=== PATIENT | female | born 1985 | race Caucasian/White ===

== ENCOUNTER 2017-08-29 08:21 | Emergency (ER) | payer MEDICAID ==
[2017-08-29] MEDS ORDERED: HYDROmorphone 4 MG/ML Syringe ONE (09:01)
[2017-08-29] MEDS ORDERED: Ondansetron 4 MG/2 ML SDV ONE (09:02)
--- NOTE | 2017-08-29 09:27 | EDM.PDOC ---
ED HPI GENERAL MEDICAL PROBLEM - General Chief Complaint: General Stated Complaint: ABDOMINAL PAIN Time Seen by Provider: 08/29/17 08:30 Source of Information: Reports: Patient History Limitations: Reports: No Limitations - History of Present Illness INITIAL COMMENTS - FREE TEXT/NARRATIVE: According to patient she started having pain in here right upper quadrant and epigastric region around midnight. Last night she had some Indonesian food and pistachios of supper and went to bed. woke up at midnight with sudden onset of severe RUQ pain, the pain lasted for few minutes and resolved, it started to reoccur all night rates her pain was around 7-8/10 when it got sharp. Did feels nausea at times, but no vomiting. Pt was told during her last that she had gall stones. No fever or chills. No jaundice or loss of appetite. Onset: Today Onset Date: 08/29/17 Onset Time: 00:30 Duration: Intermittent, Waxing/Waning Location: Reports: Abdomen Quality: Reports: Ache Severity: Moderate Improves with: Reports: None Worsens with: Reports: None Associated Symptoms: Reports: Nausea/Vomiting. Denies: Confusion, Chest Pain, Cough, Diaphoresis, Fever/Chills, Headaches, Rash, Seizure, Shortness of Breath , Syncope, Weakness Epigastric Pain Score (Numeric/FACES): 10 - Related Data Allergies Allergy/AdvReac Type Severity Reaction Status Date / Time No Known Allergies Allergy Verified 08/29/17 08:51 Home Meds: Home Meds NK [No Known Home Meds] 08/29/17 [History] ED ROS GENERAL - Review of Systems Review Of Systems: See Below Constitutional: Denies: Fever, Chills, Malaise, Weakness, Fatigue, Night Sweats HEENT: Denies: Contact Lenses, Throat Pain, Throat Swelling Respiratory: Denies: Shortness of Breath, Wheezing, Pleuritic Chest Pain, Cough , Sputum Cardiovascular: Denies: Chest Pain, Lightheadedness GI/Abdominal: Reports: Abdominal Pain, Nausea. Denies: Anorexia, Diarrhea, Vomiting : Denies: Flank Pain, Frequency Musculoskeletal: Denies: Joint Pain, Joint Swelling Skin: Denies: Bruising, Pruritis, Rash, Erythema ED EXAM, GENERAL - Physical Exam Exam: See Below Exam Limited By: No Limitations General Appearance: Alert, WD/WN, No Apparent Distress Eye Exam: Bilateral Eye: EOMI, PERRL Ears: Normal External Exam, Normal Canal, Hearing Grossly Normal, Normal TMs Ear Exam: Bilateral Ear: Auricle Normal, Canal Normal, TM normal Nose: Normal Inspection, Normal Mucosa, No Blood Throat/Mouth: Normal Inspection, Normal Lips, Normal Teeth, Normal Gums, Normal Oropharynx, Normal Voice, No Airway Compromise Head: Atraumatic, Normocephalic Neck: Normal Inspection, Supple, Non-Tender, Full Range of Motion Respiratory/Chest: No Respiratory Distress, Lungs Clear, Normal Breath Sounds, No Accessory Muscle Use, Chest Non-Tender Cardiovascular: Normal Peripheral Pulses, Regular Rate, Rhythm, No Edema, No Gallop, No JVD, No Murmur, No Rub GI/Abdominal: Normal Bowel Sounds, Soft, No Organomegaly, Tender (right upper quadrant just distal to the liver margin in right MCL. No mass felt). No: Rigid , Rebound Course - Vital Signs Text/Narrative:: Pt was in pain with mild discomfort. She did received dilaudid 0.5mg IM with zofran 4mg. It does appear very much like gall bladder colic. CBC, CMP and Ct abdomen ordered as there is no ultrasound available today. Pt cbc and CMp appear normal other than mild elevation of her blood sugar and patient is not fasting. Abdomen CT does show stones in the gall bladder with calcification. Reassured taht she does not have infection.Pt advised to stay of low fat diet. She will need surgical consultation for lap jesse.Pt prefers to see Surgeon here, so will set up with one of the visiting surgeon here. Also I have given her script for vicodin 5/325 po TID prn for pain. Return to emergency room, if symptoms worsen, if she develops nausea, vomiting, jaundice, fever or chills. Last Recorded V/S: Last Vital Signs Temp 97.2 F 08/29/17 08:27 Pulse 90 08/29/17 08:27 Resp 20 08/29/17 08:27 BP 153/111 H 08/29/17 08:27 Pulse Ox 100 08/29/17 08:27 - Orders/Labs/Meds Orders: Active Orders 24 hr Category Date Time Status Abdomen wo Cont [CT] Stat Exams 08/29/17 08:33 Taken Labs: Laboratory Tests 02/20/18 02/20/18 Range/Units 08:42 08:42 WBC 9.8 (4.0-11.0) K/uL RBC 4.09 (3.80-5.80) M/uL Hgb 13.0 (11.5-16.5) g/dL Hct 40.0 (37.0-47.0) % MCV 98 H (76-96) fL MCH 31.8 (27.0-32.0) pg MCHC 32.5 (31.0-35.0) g/dL RDW 12.8 (11.0-16.0) % Plt Count 240 (150-500) K/uL MPV 9.9 (6.0-10.0) fL Neut % (Auto) 66.0 (45.0-70.0) % Lymph % (Auto) 24.5 (20.0-40.0) % [place] % (Auto) 8.1 (3.0-10.0) % Eos % (Auto) 1.1 (1.0-5.0) % Baso % (Auto) 0.3 (0.0-0.5) % Neut # (Auto) 6.46 (2.00-7.50) K/uL Lymph # (Auto) 2.40 (1.50-4.00) K/uL [place] # (Auto) 0.79 (0.20-0.80) K/uL Eos # (Auto) 0.11 (0.04-0.40) K/uL Baso # (Auto) 0.03 (0.02-0.10) K/uL Sodium 142 (136-145) mmol/L Potassium 4.3 (3.5-5.1) mmol/L Chloride 104 (98-107) mmol/L Carbon Dioxide 25.9 (21.0-32.0) mmol/L Anion Gap 16.4 H (5.0-15.0) mmol/L BUN 9 (8-26) mg/dL Creatinine 0.83 (0.55-1.02) mg/dL Est Cr Clr Drug Dosing TNP Estimated GFR (MDRD) > 60 (>60) MLS/MIN BUN/Creatinine Ratio 10.8 (6-25) Glucose 174 H (74-100) mg/dL Calcium 8.5 (8.5-10.1) mg/dL Total Bilirubin 0.3 (0.0-1.0) mg/dL AST 13 L (15-37) U/L ALT 17 (12-78) U/L Alkaline Phosphatase 96 (46-116) U/L Total Protein 7.2 (6.4-8.2) g/dL Albumin 3.6 (3.4-5.0) g/dL Globulin 3.6 (2.2-4.2) g/dL Albumin/Globulin Ratio 1.0 (0.8-2.0) Meds: Medications Discontinued Medications Generic Name Dose Route Start Last Admin Trade Name Freq PRN Reason Stop Dose Admin Hydromorphone HCl Confirm 08/29/17 09:01 08/29/17 09:00 Dilaudid Administered 08/29/17 09:02 4 mg Dose Administration 4 mg .ROUTE .STK-MED ONE Ondansetron HCl Confirm 08/29/17 09:02 08/29/17 09:05 Zofran Administered 08/29/17 09:03 4 mg Dose Administration 4 mg .ROUTE .STK-MED ONE Departure - Departure Time of Disposition: 09:30 Disposition: Home, Self-Care 01 Condition: Fair Clinical Impression: Gall bladder stones - Discharge Information Referrals: PCP,None [Primary Care Provider] - - Problem List & Annotations (1) Gall bladder stones SNOMED Code(s): 510310289 Code(s): K80.20 - CALCULUS OF GALLBLADDER W/O CHOLECYSTITIS W/O OBSTRUCTION Status: Acute Current Visit: Yes - Problem List Review Problem List Initiated/Reviewed/Updated: Yes - My Orders Last 24 Hours: My Active Orders 08/29/17 08:33 Abdomen wo Cont [CT] Stat - Assessment/Plan Last 24 Hours: My Active Orders 08/29/17 08:33 Abdomen wo Cont [CT] Stat Assessment:: Gall stone with colic Plan: Pt was in pain with mild discomfort. She did received dilaudid 0.5mg IM with zofran 4mg. It does appear very much like gall bladder colic. CBC, CMP and Ct abdomen ordered as there is no ultrasound available today. Pt cbc and CMp appear normal other than mild elevation of her blood sugar and patient is not fasting. Abdomen CT does show stones in the gall bladder with calcification. Reassured that she does not have infection.Pt advised to stay of low fat diet. She will need surgical consultation for lap jesse.Pt prefers to see Surgeon here, so will set up with one of the visiting surgeon here. Also I have given her script for vicodin 5/325 po TID prn for pain.Pt's BP did improve with improvement of pain. BP was 128/68mmhg during discharge and patient was pain free. Return to emergency room, if symptoms worsen, if she develops nausea, vomiting, jaundice, fever or chills.
--- NOTE | 2017-08-29 12:34 | CT ---
DATE OF SERVICE: 08/29/17 CLINICAL DATA: abdominal pain UNENHANCED ABDOMEN CT: Multislice acquisition through the abdomen without IV or oral contrast was performed. No priors. The lung bases are clear. The unenhanced liver is homogeneous in attenuation. No focal hepatic lesions. The gallbladder is mildly distended. There are multiple rim-calcified gallstones noted within the gallbladder. The gallbladder wall does appear slightly thickened. The spleen appears normal. The pancreas appears normal. The right and left adrenals appear normal. The right and left kidneys appear normal. No nephrocalcinosis or nephrolithiasis. No hydronephrosis or hydroureter. The appendix is only visualized on one image. It is not dilated. There is a moderate amount of stool noted within the visualized colon. There is an umbilical hernia containing fat. No free air. No free fluid. No dilated loops of bowel. No adenopathy. No aortic aneurysm. IMPRESSION: Cholelithiasis. Mildly distended gallbladder. Slightly thickened gallbladder wall. Gallbladder ultrasound is recommended. [id number] MTDD
== END 2017-08-29 09:25 | disposition home or self-care (01) ==
LOC: LB.ED 08:21
DX: K80.20 Calculus of gallbladder without cholecystitis without obstruction (principal)
CPT/HCPCS: 36415; 74150; 80053; 85025; 99284; J1170; J2405

== ENCOUNTER 2019-06-07 19:28 | Emergency (ER) | payer MEDICAID ==
[2019-06-07] MEDS ORDERED: Naproxen 500 MG Tab ONE (19:45)
[2019-06-07] MEDS ORDERED: Ketorolac 60 MG/2 ML SDV IM ONE (19:47)
--- NOTE | 2019-06-07 19:49 | EDM.PDOC ---
ED HPI GENERAL MEDICAL PROBLEM - General Chief Complaint: General Stated Complaint: left knee pain Time Seen by Provider: 06/07/19 19:45 Source of Information: Reports: Patient History Limitations: Reports: No Limitations - History of Present Illness INITIAL COMMENTS - FREE TEXT/NARRATIVE: This patient presents to the ED for evaluation of a knee injury. She states she fell at about 0800 this morning and twisted her knee in the process. She states she heard a pop when the incident occurred and landed on the inner aspect of the joint. She was seen in the clinic this afternoon for evaluation of this and a plain film series was obtained. The provider there told her the x-rays were probably ok and the patient was discharged with instructions for supportive care. She presents now for increased pain and swelling. She denies other injuries or concerns. Onset: Today, Sudden Onset Date: 06/07/19 Duration: Getting Worse Quality: Reports: Ache, Burning, Stabbing Severity: Severe Improves with: Reports: None Worsens with: Reports: Movement Treatments BLUEPRINT DUPLICATOR: Reports: Acetaminophen, NSAIDS - Related Data Allergies Allergy/AdvReac Type Severity Reaction Status Date / Time No Known Allergies Allergy Verified 08/29/17 08:51 Home Meds: Home Meds NK [No Known Home Meds] 08/29/17 [History] ED ROS GENERAL - Review of Systems Review Of Systems: See Below Constitutional: Reports: No Symptoms HEENT: Reports: No Symptoms Respiratory: Reports: No Symptoms Cardiovascular: Reports: No Symptoms GI/Abdominal: Reports: No Symptoms Musculoskeletal: Reports: Joint Pain, Other (left knee painful, swollen with small bruised area inner aspect. Distal CMS intact) ED EXAM, GENERAL - Physical Exam Exam: See Below Exam Limited By: No Limitations General Appearance: Alert, WD/WN, No Apparent Distress Eye Exam: Bilateral Eye: PERRL Ears: Normal External Exam Nose: Normal Inspection Throat/Mouth: Normal Inspection Head: Atraumatic, Normocephalic Neck: Normal Inspection, Full Range of Motion Respiratory/Chest: No Respiratory Distress Back Exam: Normal Inspection, Full Range of Motion Extremities: Other (Left knee: significant swelling with bruising along inner aspect. No deformity. Distal CMS intact. Signficant tenderness with palpation of the inner aspect of the joint and behind the knee.) Neurological: Alert, Oriented Course - Vital Signs Last Recorded V/S: Last Vital Signs Temp 36.7 C 06/07/19 19:36 Pulse 82 06/07/19 19:36 Resp 18 06/07/19 19:36 BP 156/76 H 06/07/19 19:36 Pulse Ox 98 06/07/19 19:36 - Orders/Labs/Meds Meds: Medications Discontinued Medications Generic Name Dose Route Start Last Admin Trade Name Lissett PRN Reason Stop Dose Admin Ketorolac Tromethamine 60 mg 06/07/19 19:47 06/07/19 19:54 Toradol IM 06/07/19 19:48 60 mg ONETIME ONE Administration - Re-Assessments/Exams Free Text/Narrative Re-Assessment/Exam: 06/07/19 20:14 This patient presents with the above complaint and exam findings as noted above. X-rays are negative by my interpretation for fracture or malalignment. The patient is neurovascularly intact. Quad and patellar tendon function intact. The knee is grossly stable to stressing without obvious laxity, though this is somewhat a limited test given the patient pain and voluntary guarding. Given the exam (significant traumatic effusion), mechanism and high clinical suspicion, I suspect internal derangement of the knee including possible ligamentous and/or meniscal injury. For this reason, the patient will be treated as such with non-weight bearing and knee immobilization. Skin intact at the location of injury. No tenderness at the hip or foot to suggest concurrent injury. At this time, exam and history is clearly traumatic/musculoskeletal in nature and consistent with probable internal knee derangement and no clinical suspicion for alternate cause of knee pain including but not limited to septic joint, DVT, compartment syndrome or other. The patient will be treated with knee immobilization with TONJA wraps and I have recommended orthopedic follow up within 1 week for outpatient MRI or orthopedic referral. Ice in 20 min intervals and elevation recommended. Return for increasing pain, extremity weakness, numbness, or for any other questions or concerns discussed. The patient voiced an understanding and is in agreement with the treatment plan and need for follow up for likely additional imaging or referral. The patient was given Toradol in the ED which significantly decreased her pain prior to discharge. She was also given Naprosyn 500 mg to be used twice per day. Departure - Departure Time of Disposition: 20:15 Disposition: Home, Self-Care 01 Condition: Good Clinical Impression: Knee injury - Discharge Information Instructions: Combined Knee Ligament Sprain Forms: ED Department Discharge Additional Instructions: Discharge home. Wear TONJA wrap to left knee. ICE and elevated the leg. Naproxen 500mg by mouth 1 tablet 2 times a day. Take one in the morning. Follow up as needed in the clinic.
== END 2019-06-07 20:15 | disposition home or self-care (01) ==
LOC: LB.ED 19:28
DX: S89.92XA Unspecified injury of left lower leg, initial encounter (principal); W19.XXXA Unspecified fall, initial encounter; X50.1XXA Overexertion from prolonged static or awkward postures, initial encounter
CPT/HCPCS: 96372; 99283; A9270-GY; J1885

== ENCOUNTER 2019-10-10 09:46 | Emergency (ER) | payer MEDICAID, OTHER ==
--- NOTE | 2019-10-10 11:57 | EDM.PDOC ---
ED HPI GENERAL MEDICAL PROBLEM - General Chief Complaint: General Stated Complaint: COLD, COUGH, FEVER Time Seen by Provider: 10/10/19 10:00 - History of Present Illness INITIAL COMMENTS - FREE TEXT/NARRATIVE: Sameera presents to the emergency room with acute febrile illness. 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 She has had no ill exposures, but notes that there are still several people coming up here to their cabin's from [facility], and they oftentimes come in for medication refills and what not at [employer]. She is also concerned because a colleague that works behind the counter next to her is . She started to feel sick yesterday around 1700. A few hours later, she went from a subjective fever to a definite fever. At this time a nonproductive cough started and this pretty much kept her up all night. She notes absence of smell and taste. She has had a little bit of hoarseness in her throat but no sore throat. She has definitely has an issue in terms of feeling like she cannot get enough air, particularly like she is restricted in terms of inhalation. She has no trouble with the expiration phase at all or wheezes. She does have a family history of COPD, and she does currently smoke. She denies any genitourinary symptoms as well as . She is mostly interested in empiric treatment to help her to feel better. She does endorse some transient nausea and a bit of upset stomach, without any diarrhea. She has been staying well-hydrated. She has not had issues with bronchoconstriction throughout her life, nor has she been trialed on any bronchodilators. She sounds pretty interested in this. She also mentions prednisone. Overall she is willing to try what ever we think will help her to feel better. 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 ED EXAM, GENERAL - Physical Exam Exam: See Below Exam Limited By: No Limitations General Appearance: Alert, WD/WN, No Apparent Distress Eye Exam: Bilateral Eye: EOMI, Normal Inspection, PERRL Ears: Normal External Exam, Hearing Grossly Normal Nose: Clear Rhinorrhea Throat/Mouth: Normal Inspection, Normal Lips Head: Atraumatic, Normocephalic Neck: Normal Inspection, Supple, Non-Tender, Full Range of Motion Respiratory/Chest: No Respiratory Distress, Lungs Clear, Normal Breath Sounds, No Accessory Muscle Use. No: Respiratory Distress, Rales, Rhonchi, Wheezing, Stridor Cardiovascular: Regular Rate, Rhythm, No Murmur GI/Abdominal: Normal Bowel Sounds, Soft, Non-Tender Back Exam: Normal Inspection, Full Range of Motion Extremities: Normal Inspection, Normal Range of Motion, Non-Tender, Normal Capillary Refill Neurological: Alert, Oriented, Normal Cognition, Normal Gait Psychiatric: Normal Affect, Normal Mood Skin Exam: Warm, Dry, Intact, No Rash Lymphatic: No Adenopathy Course - Vital Signs Text/Narrative:: Again, reviewed risks and benefits of management strategies with Sameera, answering her questions to the best of my ability. We decided together to avoid chest x-ray, and it seems that blood work would have similarly low yield. I did maintain more than adequate social distance and wore a mask initially. Because of her symptoms being at higher than average risk of actually being coronavirus, I did exit the room and totally change my clothing and came in with a PAPR along with the full accompaniment of protective gear. I obtained an influenza swab which was negative. Her Covid swab was also brought to the lab. The vial was open has I was having some difficulty stepping this stick over the test, but the swab maintained under the fluid level at all times and was not agitated at all. We ultimately decided together, after speaking with the pharmacist, that she may benefit from a azithromycin, even if this is more of an anti-inflammatory effect. We explained that prednisone has some theoretical risks and we decided to hold off on this, but she wanted to try an albuterol MDI. Also gave her prescription for Tessalon Perles to help mitigate her cough. We gave her a couple of paper masks to wear at home, particularly if she gets close to her 2 sons and daughter or her spouse. She will try to maintain social distancing, and promises to use Lysol to clean frequently touched surfaces. She will remain isolated at home and a work note was provided to get her through not this Monday, but the following Monday, and case it takes over 9 days for [facility] to return her test result. Having said this, she can certainly go back to work if her cold bed becomes normal, and she has the absence of any symptoms. We discussed that she should probably continue with a paper mask when she is around her colleague, as this is a major concern for Sameera. Discussed reasons to return and/or call and she verbalizes understanding. Last Recorded V/S: Last Vital Signs Temp 96.9 F 10/10/19 09:59 Pulse 85 10/10/19 09:59 Resp 16 10/10/19 09:59 BP 160/94 H 10/10/19 09:59 Pulse Ox 100 10/10/19 09:59 - Orders/Labs/Meds Orders: Active Orders 24 hr Category Date Time Status CORONAVIRUS COVID-19, GORGE Stat Lab 10/10/19 10:53 Received Isolation [COMM] Routine Oth 10/10/19 11:00 Active Departure - Departure Time of Disposition: 10:50 Disposition: Home, Self-Care 01 Clinical Impression: Cough - Discharge Information Instructions: Upper Respiratory Infection, Adult, Acute Respiratory Distress Syndrome, Adult Referrals: PCP,None [Primary Care Provider] - Forms: ED Department Discharge Care Plan Goals: Return to hospital in the next few days if symptoms worsen. Take medications as prescribed. Sepsis Event Note - Evaluation Sepsis Screening Result: No Definite Risk - Focused Exam Vital Signs: Vital Signs Temp Pulse Resp BP Pulse Ox 10/10/19 09:59 96.9 F 85 16 160/94 H 100 Date Exam was Performed: 10/10/19 Time Exam was Performed: 11:51 - My Orders Last 24 Hours: My Active Orders 10/10/19 10:53 CORONAVIRUS COVID-19, GORGE Stat 10/10/19 11:00 Isolation [COMM] Routine - Assessment/Plan Last 24 Hours: My Active Orders 10/10/19 10:53 CORONAVIRUS COVID-19, GORGE Stat 10/10/19 11:00 Isolation [COMM] Routine
== END 2019-10-10 11:08 | disposition home or self-care (01) ==
LOC: LB.ED 09:46
DX: R05 Cough (principal); F17.210 Nicotine dependence, cigarettes, uncomplicated; Z20.828 Contact with and (suspected) exposure to other viral communicable diseases
CPT/HCPCS: 87804; 87804-59; 99282; 99283; U0002

== ENCOUNTER 2020-01-21 16:30 | Emergency (ER) | payer MEDICAID, OTHER ==
[2020-01-21] MEDS ORDERED: Sodium Chloride 0.9% 1,000 ML IV ONE (17:15)
[2020-01-21 17:42] LABS: HEMOGLOBIN A1C 9.9 % (< 5.7)
--- NOTE | 2020-01-21 17:48 | EDM.PDOC ---
ED HPI GENERAL MEDICAL PROBLEM - General Chief Complaint: Diabetic Complaint Stated Complaint: HIGH BLOOD SUGAR CO Time Seen by Provider: 01/21/20 17:00 Source of Information: Reports: Patient History Limitations: Reports: No Limitations - History of Present Illness INITIAL COMMENTS - FREE TEXT/NARRATIVE: Patient is a 34 y/o female, with no significant PMHx, who presents with 30 pound weight loss, excessive hunger/thirst/urination x 1 month. Associated symptoms include vision blurriness and dizziness. Patient states she had gestational diabetes in the past and denies now (tubal ligation). Her blood glucose at arrival was 348. Patient denies any LYMAN, chest pain, SOB, abdominal pain, N/V/D, constipation, numbness/tingling, dysuria, or cough. - Related Data Allergies Allergy/AdvReac Type Severity Reaction Status Date / Time No Known Allergies Allergy Verified 01/21/20 16:36 Home Meds: Home Meds Sertraline HCl 50 mg PO DAILY 06/07/19 [History] Past Medical History Gastrointestinal History: Reports: Other (See Below) Other Gastrointestinal History: gall stones [employer] History: Reports: Psychiatric History: Reports: Depression, Mood Swings Endocrine/Metabolic History: Reports: Diabetes, Gestational Social & Family History - Family History Family Medical History: Noncontributory - Tobacco Use Smoking Status *Q: Current Every Day Smoker Years of Tobacco use: 17 Packs/Tins Daily: 0.5 - Caffeine Use Caffeine Use: Reports: Coffee, Soda - Recreational Drug Use Recreational Drug Use: No ED ROS GENERAL - Review of Systems Review Of Systems: Comprehensive ROS is negative, except as noted in HPI. ED EXAM GENERAL NO PERIP PULSE - Physical Exam Exam: See Below Exam Limited By: No Limitations General Appearance: Alert, No Apparent Distress Eye Exam: Bilateral Eye: EOMI, Normal Inspection, PERRL Head: Atraumatic Neck: Normal Inspection, Supple, Non-Tender, Full Range of Motion Respiratory/Chest: No Respiratory Distress, Lungs Clear, Normal Breath Sounds, No Accessory Muscle Use, Chest Non-Tender Cardiovascular: Normal Peripheral Pulses, Regular Rate, Rhythm, No Edema, No Murmur GI/Abdominal: Normal Bowel Sounds, Soft, Non-Tender, No Distention Neurological: Alert, Oriented, CN II-XII Intact, Normal Cognition, Normal Gait, No Motor/Sensory Deficits Skin Exam: Warm, Dry, Intact Lymphatic: No Adenopathy Course - Vital Signs Text/Narrative:: Labs, fluid, IV insulin, and imaging ordered. Glucose in the urine. CXR normal. Hyperglycemia without electrolyte deformity. Signed patient out to [facility] at change of shift. Last Recorded V/S: Last Vital Signs Temp 36.4 C 01/21/20 18:03 Pulse 82 01/21/20 18:03 Resp 16 01/21/20 18:03 BP 127/75 01/21/20 18:03 Pulse Ox 100 01/21/20 18:03 - Orders/Labs/Meds Orders: Active Orders 24 hr Category Date Time Status Vision Test [RC] ASDIRECTED Care 01/21/20 17:17 Active Chest 1V Frontal [CR] Stat Exams 01/21/20 17:14 Taken Insulin Regular, Human [NovoLIN R] 100 unit Med 01/21/20 17:15 Active Sodium Chloride 0.9% [Normal Saline] 100 ml IV TITRATE Medication Orders Insulin Human Regular 100 unit (/ Sodium Chloride) 100 mls @ 11.204 mls/hr IV TITRATE LI; Protocol Last Admin: 01/21/20 17:51 Dose: 0.1 units/kg/hr, 11.204 mls/hr Documented by: KELI Cosigned by: MYKE Labs: Laboratory Tests 01/21/20 01/21/20 01/21/20 Range/Units 15:34 17:14 17:30 WBC 11.6 H (4.0-11.0) K/uL RBC 4.33 (3.80-5.80) M/uL Hgb 13.7 (11.5-16.5) g/dL Hct 40.7 (37.0-47.0) % MCV 94 (76-96) fL MCH 31.6 (27.0-32.0) pg MCHC 33.7 (31.0-35.0) g/dL RDW 12.4 (11.0-16.0) % Plt Count 257 (150-500) K/uL MPV 10.5 H (6.0-10.0) fL Neut % (Auto) 66.7 (45.0-70.0) % Lymph % (Auto) 26.1 (20.0-40.0) % Robeson % (Auto) 5.4 (3.0-10.0) % Eos % (Auto) 1.4 (1.0-5.0) % Baso % (Auto) 0.4 (0.0-0.5) % Neut # (Auto) 7.76 H (2.00-7.50) K/uL Lymph # (Auto) 3.03 (1.50-4.00) K/uL Robeson # (Auto) 0.63 (0.20-0.80) K/uL Eos # (Auto) 0.16 (0.04-0.40) K/uL Baso # (Auto) 0.05 (0.02-0.10) K/uL Sodium (136-145) mmol/L Potassium (3.5-5.1) mmol/L Chloride (98-107) mmol/L Carbon Dioxide (21.0-32.0) mmol/L Anion Gap (5.0-15.0) mmol/L BUN (8-26) mg/dL Creatinine (0.55-1.02) mg/dL Est Cr Clr Drug Dosing mL/min Estimated GFR (MDRD) (>60) MLS/MIN BUN/Creatinine Ratio (6-25) Glucose (74-100) mg/dL POC Glucose 348 H (74-110) mg/dL Hemoglobin A1c (< 5.7) % Calcium (8.5-10.1) mg/dL Phosphorus (2.5-4.9) mg/dL Magnesium (1.8-2.4) mg/dL Total Bilirubin (0.0-1.0) mg/dL AST (15-37) U/L ALT (12-78) U/L Alkaline Phosphatase (46-116) U/L Total Protein (6.4-8.2) g/dL Albumin (3.4-5.0) g/dL Globulin (2.2-4.2) g/dL Albumin/Globulin Ratio (0.8-2.0) Urine Color Yellow Urine Appearance Clear (CLEAR) Urine pH 5.0 (5.0-8.0) Ur Specific Marlin 1.020 (1.003-1.030) Urine Protein Negative (NEGATIVE) mg/dL Urine Glucose (UA) >=1000 H (NEGATIVE) mg/dL Urine Ketones Negative (NEGATIVE) mg/dL Urine Occult Blood Negative (NEGATIVE) Urine Nitrite Negative (NEGATIVE) Urine Bilirubin Negative (NEGATIVE) Urine Urobilinogen 0.2 (0.2-1.0) E.U./dL Ur Leukocyte Esterase Negative (NEGATIVE) 01/21/20 01/21/20 01/21/20 Range/Units 17:30 17:30 17:30 WBC (4.0-11.0) K/uL RBC (3.80-5.80) M/uL Hgb (11.5-16.5) g/dL Hct (37.0-47.0) % MCV (76-96) fL MCH (27.0-32.0) pg MCHC (31.0-35.0) g/dL RDW (11.0-16.0) % Plt Count (150-500) K/uL MPV (6.0-10.0) fL Neut % (Auto) (45.0-70.0) % Lymph % (Auto) (20.0-40.0) % Robeson % (Auto) (3.0-10.0) % Eos % (Auto) (1.0-5.0) % Baso % (Auto) (0.0-0.5) % Neut # (Auto) (2.00-7.50) K/uL Lymph # (Auto) (1.50-4.00) K/uL Robeson # (Auto) (0.20-0.80) K/uL Eos # (Auto) (0.04-0.40) K/uL Baso # (Auto) (0.02-0.10) K/uL Sodium 133 L (136-145) mmol/L Potassium 3.8 (3.5-5.1) mmol/L Chloride 97 L (98-107) mmol/L Carbon Dioxide 28.8 (21.0-32.0) mmol/L Anion Gap 11.0 (5.0-15.0) mmol/L BUN 10 (8-26) mg/dL Creatinine 0.77 (0.55-1.02) mg/dL Est Cr Clr Drug Dosing 85.16 mL/min Estimated GFR (MDRD) > 60 (>60) MLS/MIN BUN/Creatinine Ratio 13.0 (6-25) Glucose 341 H D (74-100) mg/dL POC Glucose (74-110) mg/dL Hemoglobin A1c 9.9 H (< 5.7) % Calcium 9.0 (8.5-10.1) mg/dL Phosphorus 3.4 (2.5-4.9) mg/dL Magnesium 1.9 (1.8-2.4) mg/dL Total Bilirubin 0.3 (0.0-1.0) mg/dL AST 13 L (15-37) U/L ALT 31 (12-78) U/L Alkaline Phosphatase 111 (46-116) U/L Total Protein 8.0 (6.4-8.2) g/dL Albumin 4.0 (3.4-5.0) g/dL Globulin 4.0 (2.2-4.2) g/dL Albumin/Globulin Ratio 1.0 (0.8-2.0) Urine Color Urine Appearance (CLEAR) Urine pH (5.0-8.0) Ur Specific Marlin (1.003-1.030) Urine Protein (NEGATIVE) mg/dL Urine Glucose (UA) (NEGATIVE) mg/dL Urine Ketones (NEGATIVE) mg/dL Urine Occult Blood (NEGATIVE) Urine Nitrite (NEGATIVE) Urine Bilirubin (NEGATIVE) Urine Urobilinogen (0.2-1.0) E.U./dL Ur Leukocyte Esterase (NEGATIVE) Meds: Medications Generic Name Dose Route Start Last Admin Trade Name Freq PRN Reason Stop Dose Admin Insulin Human Regular 100 unit 100 mls @ 11.204 mls/hr 01/21/20 17:15 01/21/20 17:51 / Sodium Chloride IV 0.1 units/kg/hr TITRATE LI 11.204 mls/hr Administration Protocol 0.1 UNITS/KG/HR Discontinued Medications Generic Name Dose Route Start Last Admin Trade Name Freq PRN Reason Stop Dose Admin Sodium Chloride 1,000 mls @ 1,000 mls/sec 01/21/20 17:15 01/21/20 17:35 Normal Saline IV 01/21/20 17:16 1,000 mls/sec .BOLUS ONE Administration Departure - Departure Time of Disposition: 18:11 Disposition: DC/Tfer to Other 70 Condition: Good Clinical Impression: Hyperglycemia - Discharge Information *PRESCRIPTION DRUG MONITORING PROGRAM REVIEWED*: Not Applicable *COPY OF PRESCRIPTION DRUG MONITORING REPORT IN PATIENT BERENICE: Not Applicable Referrals: PCP,None [Primary Care Provider] - Forms: ED Department Discharge Additional Instructions: signed out to [facility] Sepsis Event Note (ED) - Evaluation Sepsis Screening Result: No Definite Risk - Focused Exam Vital Signs: Vital Signs Temp Pulse Resp BP Pulse Ox 01/21/20 18:03 36.4 C 82 16 127/75 100 01/21/20 16:37 36.9 C 100 18 148/89 H 100 - My Orders Last 24 Hours: My Active Orders 01/21/20 17:14 Chest 1V Frontal [CR] Stat 01/21/20 17:15 Insulin Regular, Human [NovoLIN R] 100 unit Sodium Chloride 0.9% [Normal Saline] 100 ml IV TITRATE 01/21/20 17:17 Vision Test [RC] ASDIRECTED - Assessment/Plan Last 24 Hours: My Active Orders 01/21/20 17:14 Chest 1V Frontal [CR] Stat 01/21/20 17:15 Insulin Regular, Human [NovoLIN R] 100 unit Sodium Chloride 0.9% [Normal Saline] 100 ml IV TITRATE 01/21/20 17:17 Vision Test [RC] ASDIRECTED
[2020-01-21 18:05] VITALS: BP 127/75; PULSE 82
--- NOTE | 2020-01-22 01:16 | ER ---
HISTORY OF PRESENT ILLNESS: This 34-year-old lady was seen in the emergency room before my shift started with complaints of not feeling well, shaky and blurred vision. She was diagnosed with type 2 diabetes, new onset. Her point of care blood sugar is 348. Labs were drawn revealing white count slightly elevated at 11.6, hemoglobin A1c is 9.9, blood sugar 341. The patient was given a liter of IV fluid and approximately 11 units of insulin IV. She states that she is feeling very much better. She feels more energized and she denies any symptoms at the time I arrived. The patient had not been sick recently, but stated that she had not really felt well for about a month and over the last day or so her symptoms got worse. DIAGNOSIS: Type 2 diabetes, new onset. TREATMENT PLAN: I wrote the patient a script for metformin 500 mg 1 tablet b.i.d., I gave her a 1 month supply. She is to go home and increase her liquid intake and schedule an appointment with her primary care provider within a few days in the clinic. She needs to begin the diabetic teaching program for ongoing monitoring purposes. The patient agrees with this. She has no further questions. CRS/MODL /[id number]
--- NOTE | 2020-01-22 16:50 | CR ---
Date of Service: 01/21/20 Clinical Data: dizziness AP CHEST: No priors. The heart size is normal. The lungs are clear. No pneumothorax. No pleural effusions. No evidence of acute intrathoracic disease. [id number] [facility]
== END 2020-01-21 18:58 | disposition home or self-care (01) ==
LOC: LB.ED 16:30
DX: E11.9 Type 2 diabetes mellitus without complications (principal)
CPT/HCPCS: 36415; 71045; 80053; 81003; 82962; 83036; 83735; 84100; 85025; 99285-25; J7030

== ENCOUNTER 2021-04-22 19:26 | Emergency (ER) | payer MEDICAID ==
--- NOTE | 2021-04-22 19:57 | EDM.PDOC ---
ED HPI GENERAL MEDICAL PROBLEM - General Chief Complaint: Head Injury Stated Complaint: fall Time Seen by Provider: 04/22/21 19:30 - History of Present Illness INITIAL COMMENTS - FREE TEXT/NARRATIVE: Pt comes in with a laceration by her Lt ear. She states she fell at home and must have hit her ear on a table. She denies any LOC, visual changes or H/A. She does smell of alcohol. - Related Data Allergies Allergy/AdvReac Type Severity Reaction Status Date / Time No Known Allergies Allergy Verified 01/21/20 16:36 Home Meds: Home Meds Sertraline HCl 50 mg PO DAILY 06/07/19 [History] Past Medical History Gastrointestinal History: Reports: Other (See Below) Other Gastrointestinal History: gall stones [employer] History: Reports: Psychiatric History: Reports: Depression, Mood Swings Endocrine/Metabolic History: Reports: Diabetes, Gestational Social & Family History - Family History Family Medical History: No Pertinent Family History - Caffeine Use Caffeine Use: Reports: Coffee, Soda ED ROS GENERAL - Review of Systems Review Of Systems: Comprehensive ROS is negative, except as noted in HPI. Skin: Reports: Other (laceration by left ear.) ED EXAM, HEAD INJURY - Physical Exam Exam: See Below General Appearance: Other (Pt is a little anxious, alternating between crying and laughing episodes. she is compliant.) Skin: Other (she has a laceration just above the tragus going forward armando 1.5 cm in lenght. mild gaping is noted. no active bleeding.) ED LACERATION/WOUND & DEVIN PROC - Laceration/Wound Repair Left Ear Lac/wound length in cm: 1.5 Appearance: Superficial, Clean, Other (just thru the epidermis.) Distal NVT: Neuro & Vascular Intact Anesthetic Type: Local Local Anesthesia - Lidocaine (Xylocaine): 1% Plain Local Anesthetic Volume: 2cc Skin Prep: Providone-Iodine (Betadine) Closed with: Sutures Suture Size: 5-0 # of Sutures: 3 Departure - Departure Time of Disposition: 19:50 Disposition: Home, Self-Care 01 Condition: Good Clinical Impression: Laceration of ear Qualifiers: Encounter type: initial encounter Laterality: left Qualified Code(s): S01.312A - Laceration without foreign body of left ear, initial encounter - Discharge Information *PRESCRIPTION DRUG MONITORING PROGRAM REVIEWED*: Yes *COPY OF PRESCRIPTION DRUG MONITORING REPORT IN PATIENT BERENICE: Yes Additional Instructions: Monitor for infection. Tylenol or Motrin as needed for pain. Suture removal in 1 week - call the clinic for this.
[2021-04-22] MEDS ORDERED: Diphtheria,Pertussis(Acell),Tetanus Vaccine 0.5 ML SDV IM ONE (20:16)
== END 2021-04-22 20:02 | disposition home or self-care (01) ==
LOC: LB.ED 19:26
DX: S01.312A Laceration without foreign body of left ear, initial encounter (principal); Z23 Encounter for immunization; W18.09XA Striking against other object with subsequent fall, initial encounter; Y92.009 Unspecified place in unspecified non-institutional (private) residence as the place of occurrence of the external cause
CPT/HCPCS: 12011; 90471; 90715; 99282; A0425; A0429